=== PATIENT | female | born 1960 | race African-American/Black ===

== ENCOUNTER 2021-01-19 15:18 | Emergency (ER) | payer MEDICAID, OTHER ==
[~2021-01-19] VITALS: Ht 165.1 cm; Wt 61.0 kg
[2021-01-19] MEDS ORDERED: ACETAMINOPHEN 325MG TABLET PO ONE (16:30)
[2021-01-19 18:21] VITALS: BP 135/81
== END 2021-01-19 18:22 | disposition home or self-care (01) ==
LOC: ER 15:18
DX: S09.8XXA Other specified injuries of head, initial encounter (principal); W01.0XXA Fall on same level from slipping, tripping and stumbling without subsequent striking against object, initial encounter; Y93.89 Activity, other specified; Y92.018 Other place in single-family (private) house as the place of occurrence of the external cause
CPT/HCPCS: 99282